=== PATIENT | male | born 1990 | race Asian ===

== ENCOUNTER 2021-12-15 08:08 | Outpatient (CLI) | payer BC, SELFPAY ==
[2021-12-15 08:26] LABS: Basophils Absolute Auto 0.1 K/mm3 (0.0-0.1); Basophils Percent Auto 0.8 % (0.2-1.2); Eosinophils Absolute Auto 0.1 K/mm3 (0-0.3); Eosinophils Percent Auto 1.2 % (0-4.4); Hematocrit 45.5 % (42.0-52.0); Hemoglobin 15.4 g/dL (14.0-18.0); Immature Granulocyte Absolute 0.02 K/mm3 (0.00-0.031); Immature Granulocyte Percent A 0.3 % (0-0.5); Lymphocytes Absolute Auto 2.17 K/mm3 (0.9-3.2); Lymphocytes Percent Auto 33.2 % (18.3-44.2); Mean Corpuscular HGB Conc 33.8 g/dl (32-36); Mean Corpuscular Hemoglobin 29.8 pg (26-34); Monocytes Absolute Auto 0.5 K/mm3 (0.1-0.6); Monocytes Percent Auto 7.3 % (2.6-8.5); Neutrophils Absolute Auto 3.7 K/mm3 (1.3-6.7); Neutrophils Percent Auto 57.2 % (45.5-73.1); Platelet Count Result 315 k/mm3 (150-375); Red Blood Count 5.17 M/mm3 (4.6-6.20); Red Cell Distribution Width 12.8 % (11.5-14.5); White Blood Count 6.5 K/mm3 (4.5-10.0)
[2021-12-15 08:38] LABS: Alanine Aminotransferase 21 U/L (6-50); Albumin Level 4.8 g/dL (3.5-5.1); Alkaline Phosphatase 64 U/L (38-126); Anion Gap 5 mmol/L (8-16); Aspartate Amino Transferase 22 U/L (17-59); Bilirubin,Total 0.9 mg/dL (0.2-1.3); Blood Urea Nitrogen 13 mg/dL (9-20); Carbon Dioxide 29 mmol/L (22-30); Chloride 104 mmol/L (98-107); Estimated Glomerular Filt Rate > 60; Glucose 99 mg/dL (65-110); Potassium 3.9 mmol/L (3.4-5.0); Sodium 138 mmol/L (137-145)
[2021-12-15 09:06] LABS: Thyroid Stimulating Hormone 0.969 uIU/mL (0.465-4.680)
[2021-12-15 09:22] LABS: Vitamin D 25 Hydroxy 39.4 ng/mL
== END 2021-12-15 08:09 | disposition home or self-care (01) ==
PROVIDERS: PCP Internal Medicine; Visit Provider Internal Medicine
DX: R53.83 Other fatigue (principal)
CPT/HCPCS: 36415; 80053; 82306; 84443; 85025

== ENCOUNTER 2021-12-18 08:09 | Outpatient (CLI) | payer BC, SELFPAY ==
--- NOTE | 2022-01-02 13:00 | WPDHOMESLEEP ---
Sleep Study - Home Unattended Date of Study: 12/18/21 Ordering Provider: Tyrell Hodge, Interpreting Provider: Umu Kessler, DO Home Sleep Study Type: Apnea Link Air Height: 1.8 m Weight: 81.647 kg Body Mass Index: 25.1 Neck Circumference (inches): 14 [place]: 8 Reason for Sleep Study Loud snoring, unrefreshing sleep Sleep History The patient is a 31-year-old male with no major medical issues that had a sleep study ordered by his primary care for evaluation of sleep apnea. The patient states that he never gets a good night of rest. He states that he usually wakes up a few times throughout the night sometimes due to snoring. He states that his breathing will also stop. The patient denies awakening from sleep short of breath. He denies awakening at night with heartburn, belching or cough. He constantly snores loud enough that others complain. He rarely has trouble sleeping when he has a cold. He denies waking up gasping for air throughout the night. He occasionally has breathing problems at night observed by himself or others. He rarely sweats excessively at night. He denies having heart palpitations or irregular heartbeats during the night. He rarely falls asleep during the day and never while driving. He denies sleep paralysis and cataplexy. He rarely has trouble at school or work due to sleepiness. He rarely experiences vivid dreamlike scenes upon awakening or falling asleep. He rarely has nightmares and rarely remembers his dreams. He rarely has thoughts racing through his mind. He rarely feels sad or depressed. He occasionally has anxiety. He rarely has muscular tension. He occasionally notices parts of his body jerk. He occasionally kicks during the night. He rarely experiences crawling and aching feelings in his legs and rarely has leg pain during the night. He frequently grinds his teeth during sleep and occasionally awakens with morning jaw pain. He is rarely bothered by pain during the day and rarely awakened by pain during the night. He occasionally wakes up feeling stiff in the morning. He occasionally wakes up with sore achy muscles. He occasionally wakes up with pain in the neck, spine or other joints. He goes to bed between 10-11 p.m. on weekdays and between 10:00 p.m. and midnight on the weekends. He can fall asleep within 5 minutes. He wakes up 1-3 times throughout the night for unknown reasons. He is able to fall back asleep within 5 minutes. He wakes up at 6-7 a.m. on weekdays and between 7-9 a.m. on the weekends. He typically gets 7-9 hours of sleep per night. He does not stay in bed after waking up in the morning. He currently lives with his . He does not consume any caffeinated beverages within 2 hours of bedtime. He does not engage in physical exercise before bedtime. He will watch television before falling asleep. He does not take naps in the afternoon or the evening. He drinks 1 cup of caffeinated beverage per day. He denies tobacco, alcohol and recreational drug use. Sleep Procedure This test was performed using 4 channel monitoring including respiratory effort channel, snoring channel, heart rate channel, and oxygen saturation channel. This study was scored using [facility] guidelines. Sleep Architecture The patient had a total recording time of 8 hours 14 minutes and total monitoring time of 8 hours 2 minutes. The patient spent 8 hours, 99.5% of total monitoring time in the supine position. Respiratory Analysis The patient had an overall AHI of 0.6 and a central apnea index of 0.4. The supine AHI was 0.6. The patient had 5 apneas and 0 hypopneas. [place]ian respirations were not seen. Oximetry Data The patient had a baseline oxygen saturation of 97% and an average oxygen saturation of 97%. The lowest recorded oxygen saturation was 90%. The patient had 3 desaturations resulting in an oxygen desaturation index of 0.4. The patient spent 0 minutes with an oxygen saturatio
[2022-01-02 13:15] VITALS: BMI 25.1
== END 2021-12-19 12:54 | disposition home or self-care (01) ==
LOC: ANHCSM 08:11
PROVIDERS: PCP Internal Medicine; Visit Provider Internal Medicine
DX: G47.30 Sleep apnea, unspecified (principal); R06.83 Snoring
CPT/HCPCS: 95806

== ENCOUNTER 2025-01-11 09:03 | Outpatient (CLI) | payer BC, SELFPAY ==
[2025-01-11 10:00] LABS: Hematocrit 45.5 % (42.0-52.0); Hemoglobin 15.6 g/dL (14.0-18.0); Immature Granulocyte Percent A 0.3 % (0-0.5); Lymphocytes Absolute Auto 2.08 K/mm3 (0.9-3.2); Mean Corpuscular HGB Conc 34.3 g/dl (32-36); Mean Corpuscular Hemoglobin 29.7 pg (26-34); Mean Corpuscular Volume 86.7 fl (80-100); Nucleated Red Blood Cells Absolute Auto 0.000 K/mm3 (0.0-0.012); Nucleated Red Blood Cells Perc 0.0 % (0.0-0.2); Platelet Count Result 268 k/mm3 (150-375); Red Blood Count 5.25 M/mm3 (4.6-6.20); White Blood Count 5.8 K/mm3 (4.5-10.0)
[2025-01-11 10:15] LABS: Alanine Aminotransferase 21 U/L (6-50); Albumin Level 4.7 g/dL (3.5-5.1); Alkaline Phosphatase 56 U/L (38-126); Anion Gap 8 mmol/L (4-12); Aspartate Amino Transferase 29 U/L (17-59); Bilirubin,Total 0.9 mg/dL (0.2-1.3); Blood Urea Nitrogen 11 mg/dL (9-20); Calcium 9.2 mg/dL (8.4-10.2); Carbon Dioxide 27 mmol/L (22-30); Chloride 103 mmol/L (98-107); Cholesterol 162 mg/dL (0-200); Estimated Glomerular Filt Rate > 60; Glucose 91 mg/dL (65-110); HDL Direct 49 mg/dL; Potassium 4.1 mmol/L (3.4-5.0); Sodium 138 mmol/L (137-145); Total Protein 7.5 g/dL (6.3-8.2); Triglycerides 89 mg/dL (<150)
== END 2025-01-11 09:04 | disposition home or self-care (01) ==
PROVIDERS: PCP Internal Medicine; Visit Provider Internal Medicine
DX: Z00.00 Encounter for general adult medical examination without abnormal findings (principal); Z13.220 Encounter for screening for lipoid disorders
CPT/HCPCS: 36415; 80053; 80061; 85025